=== PATIENT | female | born 1940 | race Caucasian/White ===

== ENCOUNTER → 2019-10-22 | Outpatient (CLI) | payer MEDICARE | END | disposition home or self-care (01) | LOC: RAH 12:01 | PROVIDERS: ATTEND Neurological Surgery | DX: M47.814 Spondylosis without myelopathy or radiculopathy, thoracic region (principal); M48.04 Spinal stenosis, thoracic region; I70.0 Atherosclerosis of aorta; M41.34 Thoracogenic scoliosis, thoracic region | CPT/HCPCS: 72070 ==